=== PATIENT | female | born 1970 | race Caucasian/White ===

== ENCOUNTER 2019-09-20 11:10 | Emergency (ER) | payer BC ==
[~2019-09-20] VITALS: Ht 162.6 cm; Wt 156.6 kg
--- NOTE | 2019-09-20 13:17 | NUR ---
VASCULAR IN WITHM PT AT THIS TIME.
[2019-09-20 13:51] VITALS: BP 132/77
== END 2019-09-20 13:50 | disposition home or self-care (01) ==
LOC: ER 11:10
DX: M79.662 Pain in left lower leg (principal)
CPT/HCPCS: 93971; 99284

== ENCOUNTER 2022-04-15 16:28 | Emergency (ER) | payer BC ==
[~2022-04-15] VITALS: Ht 162.6 cm; Wt 137.3 kg
[2022-04-15 16:37] VITALS: BP 135/80
== END 2022-04-15 17:57 | disposition home or self-care (01) ==
LOC: ER 16:29
DX: S46.911A Strain of unspecified muscle, fascia and tendon at shoulder and upper arm level, right arm, initial encounter (principal); X58.XXXA Exposure to other specified factors, initial encounter; Y93.89 Activity, other specified; Y92.89 Other specified places as the place of occurrence of the external cause; Y99.8 Other external cause status
CPT/HCPCS: 73030; 99283; A4565